=== PATIENT | female | born 1995 | race Two or more races ===

== ENCOUNTER 2018-05-28 15:19 | Emergency (ER) | payer SELFPAY ==
--- NOTE | 2018-05-28 15:42 | EDM.PDOC ---
ED HPI GENERAL MEDICAL PROBLEM - General Chief Complaint: Behavioral/Psych Stated Complaint: ANXICIETY AND SUICIDAL JOSÉ Time Seen by Provider: 05/28/18 15:42 Source of Information: Reports: Patient - History of Present Illness INITIAL COMMENTS - FREE TEXT/NARRATIVE: HISTORY AND PHYSICAL: History of present illness: [Patient presents with , she is Malagasy-speaking initial history was obtained through the [facility] system Her speaks Austrian well and provides additional history Patient has recently moved from [place], she has a history of depression for which she was on fluoxetine and an unknown medication to me which does not translate, she discontinued these medications on her own, she has a previous history of suicide attempt by ingestion 6 years prior and was hospitalized while in [place] Currently she relates her depressed mood to not wanting to live in [place] and wanting/desiring to return to [place], is also been arguing with her concerning this, and is learned that her mother has a cancerous process. Today the patient actively tried to jump out of their four-story window and their apartment complex although was detained by her or a restrained No other symptoms such as fever nausea vomiting diarrhea constipation chest pain shortness breath headache dizziness palpitation no bowel or urine symptoms no visual or audio hallucinations Review of systems: As per history of present illness and below otherwise all systems reviewed and negative. Past medical history: As per history of present illness and as reviewed below otherwise noncontributory. Surgical history: As per history of present illness and as reviewed below otherwise noncontributory. Social history: No reported history of drug or alcohol abuse. Family history: As per history of present illness and as reviewed below otherwise noncontributory. Physical exam: HEENT: Atraumatic, normocephalic, pupils reactive, negative for conjunctival pallor or scleral icterus, mucous membranes moist, throat clear, neck supple, nontender, trachea midline. Lungs: Clear to auscultation, breath sounds equal bilaterally, chest nontender. Heart: S1S2, regular, negative for clicks, rubs, or JVD. Abdomen: Soft, nondistended, nontender. Negative for masses or hepatosplenomegaly. Negative for costovertebral tenderness. Pelvis: Stable nontender. Genitourinary: Deferred. Rectal: Deferred. Extremities: Atraumatic, negative for cords or calf pain. Neurovascular unremarkable. Neuro: Awake, alert, oriented. Cranial nerves II through XII unremarkable. Cerebellum unremarkable. Motor and sensory unremarkable throughout. Exam nonfocal. Diagnostics: [CBC CMP UA hCG TSH acetaminophen salicylate alcohol and drug screen EKG Chest 1 view ] Therapeutics: [ none Patient transferred to [facility] excepting ] Impression: [ suicide ideations with attempt ] Definitive disposition and diagnosis as appropriate pending reevaluation and review of above. Head Pain Score (Numeric/FACES): 8 - Related Data Allergies Allergy/AdvReac Type Severity Reaction Status Date / Time No Known Allergies Allergy Verified 05/28/18 15:41 Home Meds: Home Meds . [No Known Home Meds] 05/28/18 [History] ED ROS GENERAL - Review of Systems Review Of Systems: See Below ED EXAM, GENERAL - Physical Exam Exam: See Below Course - Vital Signs Last Recorded V/S: Last Vital Signs Temp 97.6 F 05/28/18 15:35 Pulse 83 05/28/18 15:35 Resp 16 05/28/18 15:35 BP 119/80 05/28/18 15:35 Pulse Ox 100 05/28/18 15:35 - Orders/Labs/Meds Orders: Active Orders 24 hr Category Date Time Status EKG 12 Lead [EKG Documentation Completion] [RC] STAT Care 05/28/18 15:40 Active Chest 1V Frontal [CR] Stat Exams 05/28/18 15:40 Taken Labs: Laboratory Tests 05/28/18 05/28/18 05/28/18 Range/Units 15:51 15:51 15:55 WBC 7.26 (4.0-11.0) K/uL RBC 4.57 (4.30-5.90) M/uL Hgb 13.6 (12.0-16.0) g/dL Hct 39.3 (36.0-46.0) % MCV 86.0 (80.0-98.0) fL MCH 29.8 (27.0-32.0) pg MCHC 34.6 (31.0-37.0) g/dL RDW Std Deviation 37.6 (28.0-62.0) fl RDW Coeff of Olamide 12 (11.0-15.0) % Plt Count 249 (150-400) K/uL MPV 9.90 (7.40-12.00) fL Neut % (Auto) 60.2 (48.0-80.0) % Lymph % (Auto) 30.9 (16.0-40.0) % Sharkey % (Auto) 6.9 (0.0-15.0) % Eos % (Auto) 1.7 (0.0-7.0) % Baso % (Auto) 0.3 (0.0-1.5) % Neut # (Auto) 4.4 (1.4-5.7) K/uL Lymph # (Auto) 2.2 (0.6-2.4) K/uL Sharkey # (Auto) 0.5 (0.0-0.8) K/uL Eos # (Auto) 0.1 (0.0-0.7) K/uL Baso # (Auto) 0.0 (0.0-0.1) K/uL Nucleated RBC % 0.0 /100WBC Nucleated RBCs # 0 K/uL Sodium 139 (136-145) mmol/L Potassium 3.8 (3.5-5.1) mmol/L Chloride 107 (98-107) mmol/L Carbon Dioxide 22.8 (21.0-32.0) mmol/L BUN 19 H (7.0-18.0) mg/dL Creatinine 0.9 (0.6-1.0) mg/dL Est Cr Clr Drug Dosing 68.64 mL/min Estimated GFR (MDRD) > 60.0 ml/min Glucose 85 (74-106) mg/dL Calcium 9.0 (8.5-10.1) mg/dL Total Bilirubin 0.3 (0.2-1.0) mg/dL AST 16 (15-37) IU/L ALT 30 (14-63) IU/L Alkaline Phosphatase 60 (46-116) U/L Troponin I < 0.050 (0.000-0.056) ng/mL Total Protein 7.7 (6.4-8.2) g/dL Albumin 3.7 (3.4-5.0) g/dL Globulin 4.0 H (2.0-3.5) g/dL Albumin/Globulin Ratio 0.9 L (1.3-2.8) TSH 3rd Generation 2.96 (0.36-3.74) uIU/mL Urine Color YELLOW Urine Appearance CLEAR Urine pH 6.0 (5.0-8.0) Ur Specific [place] >= 1.030 (1.001-1.035) Urine Protein NEGATIVE (NEGATIVE) mg/dL Urine Glucose (UA) NEGATIVE (NEGATIVE) mg/dL Urine Ketones 15 H (NEGATIVE) mg/dL Urine Occult Blood NEGATIVE (NEGATIVE) Urine Nitrite NEGATIVE (NEGATIVE) Urine Bilirubin NEGATIVE (NEGATIVE) Urine Urobilinogen 0.2 (<2.0) EU/dL Ur Leukocyte Esterase NEGATIVE (NEGATIVE) Urine RBC 0-2 (0-2/HPF) Urine WBC 0-2 (0-5/HPF) Ur Epithelial Cells RARE (NONE-FEW) Urine Bacteria RARE (NEGATIVE) Urine HCG, Qual (NEGATIVE) Salicylates 0.9 (0-20) mg/dL Urine Opiates Screen (NEGATIVE) Ur Oxycodone Screen (NEGATIVE) Urine Methadone Screen (NEGATIVE) Acetaminophen 0.0 ug/mL Ur Barbiturates Screen (NEGATIVE) Ur Phencyclidine Scrn (NEGATIVE) Ur Amphetamine Screen (NEGATIVE) U Methamphetamines Scrn (NEGATIVE) U Benzodiazepines Scrn (NEGATIVE) U Cocaine Metab Screen (NEGATIVE) U Marijuana (THC) Screen (NEGATIVE) Ethyl Alcohol <3 mg/dL 05/28/18 05/28/18 Range/Units 15:55 15:55 WBC (4.0-11.0) K/uL RBC (4.30-5.90) M/uL Hgb (12.0-16.0) g/dL Hct (36.0-46.0) % MCV (80.0-98.0) fL MCH (27.0-32.0) pg MCHC (31.0-37.0) g/dL RDW Std Deviation (28.0-62.0) fl RDW Coeff of Olamide (11.0-15.0) % Plt Count (150-400) K/uL MPV (7.40-12.00) fL Neut % (Auto) (48.0-80.0) % Lymph % (Auto) (16.0-40.0) % Sharkey % (Auto) (0.0-15.0) % Eos % (Auto) (0.0-7.0) % Baso % (Auto) (0.0-1.5) % Neut # (Auto) (1.4-5.7) K/uL Lymph # (Auto) (0.6-2.4) K/uL Sharkey # (Auto) (0.0-0.8) K/uL Eos # (Auto) (0.0-0.7) K/uL Baso # (Auto) (0.0-0.1) K/uL Nucleated RBC % /100WBC Nucleated RBCs # K/uL Sodium (136-145) mmol/L Potassium (3.5-5.1) mmol/L Chloride (98-107) mmol/L Carbon Dioxide (21.0-32.0) mmol/L BUN (7.0-18.0) mg/dL Creatinine (0.6-1.0) mg/dL Est Cr Clr Drug Dosing mL/min Estimated GFR (MDRD) ml/min Glucose (74-106) mg/dL Calcium (8.5-10.1) mg/dL Total Bilirubin (0.2-1.0) mg/dL AST (15-37) IU/L ALT (14-63) IU/L Alkaline Phosphatase (46-116) U/L Troponin I (0.000-0.056) ng/mL Total Protein (6.4-8.2) g/dL Albumin (3.4-5.0) g/dL Globulin (2.0-3.5) g/dL Albumin/Globulin Ratio (1.3-2.8) TSH 3rd Generation (0.36-3.74) uIU/mL Urine Color Urine Appearance Urine pH (5.0-8.0) Ur Specific [place] (1.001-1.035) Urine Protein (NEGATIVE) mg/dL Urine Glucose (UA) (NEGATIVE) mg/dL Urine Ketones (NEGATIVE) mg/dL Urine Occult Blood (NEGATIVE) Urine Nitrite (NEGATIVE) Urine Bilirubin (NEGATIVE) Urine Urobilinogen (<2.0) EU/dL Ur Leukocyte Esterase (NEGATIVE) Urine RBC (0-2/HPF) Urine WBC (0-5/HPF) Ur Epithelial Cells (NONE-FEW) Urine Bacteria (NEGATIVE) Urine HCG, Qual NEGATIVE (NEGATIVE) Salicylates (0-20) mg/dL Urine Opiates Screen NEGATIVE (NEGATIVE) Ur Oxycodone Screen NEGATIVE (NEGATIVE) Urine Methadone Screen NEGATIVE (NEGATIVE) Acetaminophen ug/mL Ur Barbiturates Screen NEGATIVE (NEGATIVE) Ur Phencyclidine Scrn NEGATIVE (NEGATIVE) Ur Amphetamine Screen NEGATIVE (NEGATIVE) U Methamphetamines Scrn NEGATIVE (NEGATIVE) U Benzodiazepines Scrn NEGATIVE (NEGATIVE) U Cocaine Metab Screen NEGATIVE (NEGATIVE) U Marijuana (THC) Screen NEGATIVE (NEGATIVE) Ethyl Alcohol mg/dL Departure - Departure Time of Disposition: 17:04 Disposition: DC/Tfer to Acute Hospital 02 Condition: Poor Clinical Impression: Suicide attempt - Discharge Information Referrals: PCP,None [Primary Care Provider] - Forms: ED Department Discharge - My Orders Last 24 Hours: My Active Orders 05/28/18 15:40 EKG 12 Lead [EKG Documentation Completion] [RC] STAT Chest 1V Frontal [CR] Stat - Assessment/Plan Last 24 Hours: My Active Orders 05/28/18 15:40 EKG 12 Lead [EKG Documentation Completion] [RC] STAT Chest 1V Frontal [CR] Stat
[2018-05-28 16:29] LABS: CHLORIDE,CL 107 mmol/L (98-107); SODIUM,NA 139 mmol/L (136-145)
--- NOTE | 2018-05-31 10:20 | CR ---
EXAM DATE: 05/28/18 PATIENT'S AGE: 23 Patient: VIRGINIA PARRA Facility: [place], [place] Site . Site : 1995 Study: XRay Chest [id number]/28/2018 4:19:34 PM Ordering Physician: Tereza Lyman Final Report: INDICATION: Anxiety, Suicidal Thoughts TECHNIQUE: Chest 1 view. COMPARISON: None FINDINGS: Cardiovascular and mediastinum: Heart size and vasculature are normal in caliber and appearance. Mediastinum is within normal limits. Lungs and pleural space: Lungs are clear. No sign of infiltrate or mass. No sign of pleural effusion. No pneumothorax. Bones and soft tissues: No significant findings. IMPRESSION: Unremarkable chest. Dictated by: Rubens Rodas MD @ 05/28/2018 16:59:36 (Electronic Signature) Report Signed by Proxy. [facility]
== END 2018-05-28 18:10 ==
LOC: MW.ED 15:19
DX: T14.91XA Suicide attempt, initial encounter (principal)
CPT/HCPCS: 36415; 71045; 80053; 80305; 81001; 81025; 84443; 84484; 85025; 93005; 99285; G0480; 99283

== ENCOUNTER 2019-08-05 02:31 | Inpatient (IN) | payer BC ==
[2019-08-05] MEDS ORDERED: Sodium Chloride 0.9% 10 ML Syringe FLUSH PRN (02:50)
[2019-08-05] MEDS ORDERED: Butorphanol 1 MG/ML SDV IVPUSH PRN (02:50)
[2019-08-05] MEDS ORDERED: Methylergonovine 0.2 MG/1 ML Amp IM PRN (02:50)
[2019-08-05] MEDS ORDERED: Carboprost Tromethamine 250 MCG/1 ML Amp IM PRN (02:50)
[2019-08-05] MEDS ORDERED: Sodium Chloride 0.9% 2.5 ML Syringe FLUSH PRN (02:50)
[2019-08-05] MEDS ORDERED: Water For Irrigation,Sterile 1,000 ML Container IRR PRN (02:50)
[2019-08-05] MEDS ORDERED: Nalbuphine 10 MG/1 ML Vial IVPUSH PRN (02:50)
[2019-08-05] MEDS ORDERED: Lidocaine 1% 50 ML MDV INJECT PRN (02:50)
[2019-08-05] MEDS ORDERED: Sodium Chloride 0.9% 10 ML SDV IV PRN (02:50)
[2019-08-05] MEDS ORDERED: Tranexamic Acid 1,000 MG in Sodium Chloride 0.9% 100 ML IV PRN (02:50)
[2019-08-05] MEDS ORDERED: Misoprostol 200 MCG Tab PO PRN (02:50)
[2019-08-05] MEDS ORDERED: Oxytocin/0.9 % Sodium Chloride 30 UNIT/500 ML BAG IV SCH (03:00)
[2019-08-05] MEDS ORDERED: Oxytocin/0.9 % Sodium Chloride 30 UNIT/500 ML BAG ONE (03:14)
[2019-08-05] MEDS: Lactated Ringers 1,000 ML IV SCH ×2 (03:17→04:18)
[2019-08-05] MEDS ORDERED: fentaNYL 100 MCG/2 ML SDV ONE (03:49)
[2019-08-05] MEDS ORDERED: Ropivacaine HCl/PF 100 ML ONE (03:49)
--- NOTE | 2019-08-05 04:11 | PCM.PREANE ---
Preanesthetic Assessment - Anesthesia/Transfusion/Family Hx Anesthesia History: Prior Anesthesia Without Reaction Family History of Anesthesia Reaction: No - Physical Assessment NPO Status Date: 08/05/19 NPO Status Time: 00:05 Height: 1.52 m ASA Class: 1 - Lab Values: Laboratory Last Values WBC 9.04 K/uL (4.0-11.0) 08/05/19 03:10 RBC 4.03 M/uL (4.30-5.90) L 08/05/19 03:10 Hgb 11.2 g/dL (12.0-16.0) L 08/05/19 03:10 Hct 34.6 % (36.0-46.0) L 08/05/19 03:10 MCV 85.9 fL (80.0-98.0) 08/05/19 03:10 MCH 27.8 pg (27.0-32.0) 08/05/19 03:10 MCHC 32.4 g/dL (31.0-37.0) 08/05/19 03:10 RDW Std Deviation 42.9 fl (28.0-62.0) 08/05/19 03:10 RDW Coeff of Olamide 14 % (11.0-15.0) 08/05/19 03:10 Plt Count 210 K/uL (150-400) 08/05/19 03:10 MPV 9.70 fL (7.40-12.00) 08/05/19 03:10 Nucleated RBC % 0.0 /100WBC 08/05/19 03:10 Nucleated RBCs # 0 K/uL 08/05/19 03:10 Blood Type O POSITIVE 08/05/19 03:10 Antibody Screen NEGATIVE 08/05/19 03:10 - Allergies Allergies/Adverse Reactions: Allergies Allergy/AdvReac Type Severity Reaction Status Date / Time No Known Allergies Allergy Verified 06/23/18 11:08 - Acknowledgements Anesthesia Type Planned: Epidural Pt an Appropriate Candidate for the Planned Anesthesia: Yes Alternatives and Risks of Anesthesia Discussed w Pt/Guardian: Yes Pt/Guardian Understands and Agrees with Anesthesia Plan: Yes PreAnesthesia Questionnaire - Past Health History Medical/Surgical History: Denies Medical/Surgical History Gastrointestinal History: Reports: Gastritis [employer] History: Reports: Psychiatric History: Reports: Anxiety, Depression - SUBSTANCE USE Smoking Status *Q: Never Smoker Recreational Drug Use History: No - HOME MEDS Home Medications: Home Meds Ciprofloxacin HCl [Cipro] 500 mg PO BID 7 Days #14 tablet 06/23/18 [Rx] - CURRENT (IN HOUSE) MEDS Current Meds: Current Medications Butorphanol Tartrate (Stadol) 1 mg IVPUSH Q1H PRN PRN Reason: Pain Carboprost Tromethamine (Hemabate Ds) 250 mcg IM ASDIRECTED PRN PRN Reason: Post Hemorrhage Lactated Ringer's (Ringers, Lactated) 1,000 mls @ 150 mls/hr IV ASDIRECTED ZOE Last Infusion: 08/05/19 03:29 Dose: 500 mls/hr Oxytocin/Sodium Chloride (Oxytocin 30 Unit/500 Ml-Ns) 30 unit in 500 mls @ 500 mls/hr IV TITRATE ZOE Tranexamic Acid 1,000 mg/ (Sodium Chloride) 110 mls @ 660 mls/hr IV ONETIME PRN PRN Reason: Bleeding Lidocaine HCl (Xylocaine 1%) 50 ml INJECT ONETIME PRN PRN Reason: Laceration repair Methylergonovine Maleate (Methergine) 0.2 mg IM ASDIRECTED PRN PRN Reason: Post Hemorrhage Misoprostol (Cytotec) 200 mcg PO ONETIME PRN PRN Reason: Post Hemorrhage Nalbuphine HCl (Nubain) 10 mg IVPUSH Q1H PRN PRN Reason: Pain (severe 7-10) Sodium Chloride (Saline Flush) 10 ml FLUSH ASDIRECTED PRN PRN Reason: Keep Vein Open Sodium Chloride (Saline Flush) 2.5 ml FLUSH ASDIRECTED PRN PRN Reason: Keep Vein Open Sodium Chloride (Normal Saline) 10 ml IV ASDIRECTED PRN PRN Reason: IV Use Sterile Water (Sterile Water For Irrigation) 1,000 ml IRR ASDIRECTED PRN PRN Reason: delivery Discontinued Medications Fentanyl (Sublimaze) Confirm Administered Dose 100 mcg .ROUTE .STK-MED ONE Stop: 08/05/19 03:50 Oxytocin/Sodium Chloride (Oxytocin 30 Unit/500 Ml-Ns) Confirm Administered Dose 30 unit in 500 mls @ as directed .ROUTE .STK-MED ONE Stop: 08/05/19 03:15 Ropivacaine (Naropin 0.2%) Confirm Administered Dose 100 mls @ as directed .ROUTE .STK-MED ONE Stop: 08/05/19 03:50
--- NOTE | 2019-08-05 04:14 | PCM.PRNOTE ---
- Free Text/Narrative Note: Anes Note Patient requests epidural for L&D< Sitting position. Level L3-L4 midline approach. Sterile technique. Chloraprep scrub to lumbar area. Sterile fenestrated drape applied. Epidural space easily achieved single attempt with ease using FARIDA technique. FARIDA at 3 cm. Cathreaded easily 5 cm. Cath secured at skin at 9 cm using sterile clear adhesive dressing. 0356 Test 3 cc 0.2% ropiv with 1 mcg cc fentanyl negative. 0359 Load 10 cc 0.2% ropiv with 1 mcg cc fentanyl in slow divdided doses. 0402 Pump started with 90 cc same solution at 8 cc hr with 6 cc q 20 min prn bolus. Time with patient [id number] Darren Gillespie CRNA
[2019-08-05] MEDS ORDERED: Acetaminophen 500 MG Tab PO PRN (06:21)
[2019-08-05] MEDS ORDERED: Docusate Sodium 100 MG Cap PO PRN (06:21)
[2019-08-05] MEDS ORDERED: Lanolin 100% Cream 7 GM Tube TOP PRN (06:21)
[2019-08-05] MEDS ORDERED: Witch Hazel Medicated Pads 40/Jar TOP PRN (06:21)
[2019-08-05] MEDS ORDERED: Benzocaine/Menthol 20%-0.5% Spray 78 GM Cannister TOP PRN (06:21)
[2019-08-05] MEDS ORDERED: Ibuprofen 400 MG Tab PO PRN (06:21)
[2019-08-05] MEDS ORDERED: Bisacodyl 10 MG Supp RECTAL PRN (06:21)
--- NOTE | 2019-08-05 07:20 | PCM48HPAN ---
Post Anesthesia Note - EVALUATION WITHIN 48HRS OF ANESTHETIC Vital Signs in Normal Range: Yes Patient Participated in Evaluation: Yes Respiratory Function Stable: Yes Airway Patent: Yes Cardiovascular Function Stable: Yes Hydration Status Stable: Yes Pain Control Satisfactory: Yes Nausea and Vomiting Control Satisfactory: Yes Mental Status Recovered: Yes - COMMENTS/OBSERVATIONS Free Text/Narrative:: Delivered. Doing well. No problems post.
[2019-08-05] MEDS: Acetaminophen 500 MG Tab PO PRN ×2 (08:16→22:07)
--- NOTE | 2019-08-05 12:30 | OR ---
SURGEON: Giovanni Hickman MD DATE OF PROCEDURE: 08/05/2019 INDICATION FOR PROCEDURE: A 24-year-old G3, P2-0-0-2 at 38 weeks and 4 days, presenting in spontaneous labor. Patient had regular contractions and was 5 cm dilated with cervical change. She received epidural and had AROM. She became fully dilated and started pushing with contractions. PREOPERATIVE DIAGNOSES: 1. Intrauterine at 38 weeks and 4 days. 2. Active second stage of labor. POSTOPERATIVE DIAGNOSES: 1. Intrauterine at 38 weeks and 4 days. 2. Active second stage of labor. PROCEDURE: Normal spontaneous vaginal delivery. FINDINGS: Male infant, 8 and 9. weight of 3.02kg EBL: 300 mL. ANESTHESIA: Epidural. DESCRIPTION OF PROCEDURE: The patient pushed with contractions for approximately 30 minutes. heart rate with decelerations to the 80s during contractions. head delivered in occiput anterior position over intact perineum, restituted ROT. No nuchal cord was noted. Anterior shoulder delivered easily followed by posterior shoulder and remaining body. Baby was placed on maternal chest and assessed by awaiting nursery staff. Baby was pink and crying vigorously, moving all extremities after delivery. Umbilical cord was clamped and cut after 60 seconds and no longer pulsating. Umbilical cord gases were obtained. Placenta was removed with gentle traction on the umbilical cord. Placenta was examined to be intact with 3-vessel cord. Bimanual massage was performed. Uterus was firm and at the umbilicus. Perineum was examined and noted to have a superficial laceration that was hemostatic. Bleeding was minimal. care instructions were provided to patient. She tolerated the procedure well without complication. EVER / JESSENIA /[id number] JOSE A
[2019-08-05] MEDS: Ibuprofen 800 MG Tab PO PRN (16:10)
[2019-08-06] MEDS: Ibuprofen 800 MG Tab PO PRN (00:39)
--- NOTE | 2019-08-06 09:12 | PCM.PNPP ---
- General Info Date of Service: 08/06/19 Admission Dx/Problem (Free Text): Patient without complaints this morning. Light lochia. Minimal pain. Functional Status: Reports: Pain Controlled, Tolerating Diet, Ambulating, Urinating - Review of Systems General: Reports: No Symptoms HEENT: Reports: No Symptoms Pulmonary: Reports: No Symptoms Cardiovascular: Reports: No Symptoms Gastrointestinal: Reports: No Symptoms Genitourinary: Reports: No Symptoms Musculoskeletal: Reports: No Symptoms Skin: Reports: No Symptoms Neurological: Reports: No Symptoms Psychiatric: Reports: No Symptoms - Patient Data Vital Signs - Most Recent: Last Vital Signs Temp 36.4 C 08/06/19 07:50 Pulse 80 08/06/19 07:50 Resp 18 08/06/19 07:50 BP 111/64 08/06/19 07:50 Pulse Ox 97 08/06/19 07:50 Lab Results - Last 24 Hours: Laboratory Results - last 24 hr 08/06/19 Range/Units 05:48 Hgb 9.9 L (12.0-16.0) g/dL Hct 31.0 L (36.0-46.0) % Med Orders - Current: Current Medications Acetaminophen (Tylenol Extra Strength) 500 mg PO Q4H PRN PRN Reason: Pain Acetaminophen (Tylenol Extra Strength) 1,000 mg PO Q4H PRN PRN Reason: Pain Last Admin: 08/05/19 22:07 Dose: 1,000 mg Benzocaine/Menthol (Dermoplast Pain Relief 20%-0.5% Mutual) 78 gm TOP ASDIRECTED PRN PRN Reason: Perineal Comfort Measure Last Admin: 08/06/19 00:40 Dose: 1 can Bisacodyl (Dulcolax) 10 mg RECTAL ONETIME PRN PRN Reason: Constipation Butorphanol Tartrate (Stadol) 1 mg IVPUSH Q1H PRN PRN Reason: Pain Carboprost Tromethamine (Hemabate Ds) 250 mcg IM ASDIRECTED PRN PRN Reason: Post Hemorrhage Docusate Sodium (Colace) 100 mg PO BID PRN PRN Reason: Constipation Last Admin: 08/05/19 08:17 Dose: 100 mg Emollient Ointment (Lansinoh Hpa) 0 gm TOP ASDIRECTED PRN PRN Reason: Sore Nipples Lactated Ringer's (Ringers, Lactated) 1,000 mls @ 150 mls/hr IV ASDIRECTED [facility] Last Admin: 08/05/19 04:18 Dose: 500 mls/hr Oxytocin/Sodium Chloride (Oxytocin 30 Unit/500 Ml-Ns) 30 unit in 500 mls @ 500 mls/hr IV TITRATE [facility] Last Admin: 08/05/19 06:07 Dose: 500 mls/hr Tranexamic Acid 1,000 mg/ (Sodium Chloride) 110 mls @ 660 mls/hr IV ONETIME PRN PRN Reason: Bleeding Ibuprofen (Motrin) 400 mg PO Q4H PRN PRN Reason: Pain Ibuprofen (Motrin) 800 mg PO Q6H PRN PRN Reason: Pain Last Admin: 08/06/19 00:39 Dose: 800 mg Lidocaine HCl (Xylocaine 1%) 50 ml INJECT ONETIME PRN PRN Reason: Laceration repair Methylergonovine Maleate (Methergine) 0.2 mg IM ASDIRECTED PRN PRN Reason: Post Hemorrhage Misoprostol (Cytotec) 200 mcg PO ONETIME PRN PRN Reason: Post Hemorrhage Nalbuphine HCl (Nubain) 10 mg IVPUSH Q1H PRN PRN Reason: Pain (severe 7-10) Sodium Chloride (Saline Flush) 10 ml FLUSH ASDIRECTED PRN PRN Reason: Keep Vein Open Sodium Chloride (Saline Flush) 2.5 ml FLUSH ASDIRECTED PRN PRN Reason: Keep Vein Open Sodium Chloride (Normal Saline) 10 ml IV ASDIRECTED PRN PRN Reason: IV Use Sterile Water (Sterile Water For Irrigation) 1,000 ml IRR ASDIRECTED PRN PRN Reason: delivery Last Admin: 08/05/19 06:15 Dose: 1,000 ml Witch Galina (Tucks) 1 pad TOP ASDIRECTED PRN PRN Reason: comfort care Last Admin: 08/06/19 00:41 Dose: 1 tub Discontinued Medications Fentanyl (Sublimaze) Confirm Administered Dose 100 mcg .ROUTE .STK-MED ONE Stop: 08/05/19 03:50 Last Admin: 08/06/19 00:53 Dose: Not Given Oxytocin/Sodium Chloride (Oxytocin 30 Unit/500 Ml-Ns) Confirm Administered Dose 30 unit in 500 mls @ as directed .ROUTE .STK-MED ONE Stop: 08/05/19 03:15 Ropivacaine (Naropin 0.2%) Confirm Administered Dose 100 mls @ as directed .ROUTE .STK-MED ONE Stop: 08/05/19 03:50 Last Admin: 08/06/19 00:52 Dose: Not Given - Infant Interaction Disposition, : at Bedside Interaction: Not Interacting Infant Feeding: Attempted ; Nursed Fair/Poor - Recovery Exam Fundal Tone: Firm Fundal Level: 1 Fingerbreadths Below Umbilicus Fundal Placement: Midline Lochia Amount: Scant Lochia Color: Rubra/Red Bladder Status: Voiding Urinary Elimination: Voided - Exam General: Alert, Oriented Neck: Supple Lungs: Clear to Auscultation, Normal Respiratory Effort Cardiovascular: Regular Rate, Regular Rhythm GI/Abdominal Exam: Soft, Non-Tender, No Distention Extremities: Non-Tender, No Pedal Edema Skin: Warm, Dry, Intact Neurological: No New Focal Deficit Psy/Mental Status: Alert, Normal Affect, Normal Mood - Problem List & Annotations (1) Vaginal delivery SNOMED Code(s): 421281030 Code(s): O80 - ENCOUNTER FOR FULL-TERM UNCOMPLICATED DELIVERY Status: Acute Current Visit: Yes - Problem List Review Problem List Initiated/Reviewed/Updated: Yes - Assessment Assessment:: 24yo PPD#1 s/p - Plan Plan:: Meeting all milestones. Desires discharge home today. Reviewed discharge instructions.
== END 2019-08-06 12:59 | disposition home or self-care (01) | DRG 560 ==
LOC: MW.OBCHECK 02:31 → MW.OB 02:32 → MW.OBCHECK 02:35 → OBSVTOIN 06:04 → MW.OB 09:04
PROVIDERS: ADMIT Obstetrics & Gynecology; ATTEND Obstetrics & Gynecology
PROC: 10E0XZZ Delivery of Products of Conception, External Approach (ICD-10-PCS; principal; 2019-08-05)
PROC: 10907ZC Drainage of Amniotic Fluid, Therapeutic from Products of Conception, Via Natural or Artificial Opening (ICD-10-PCS; 2019-08-05)
DX: O80 Encounter for full-term uncomplicated delivery (principal); Z37.0 Single live birth; Z3A.38 38 weeks gestation of pregnancy
CPT/HCPCS: 01967; 36415; 51702; 59025; 59409; 85014; 85018; 85027; 86593; 86850; 86900; 86901; A9270-GY; J2590; J2795; J3010; J7120

== ENCOUNTER 2021-04-09 10:09 | Day surgery (SDC) | payer BC ==
[~2021-04-09 10:09] MED LIST: Lactated Ringers 1,000 ML IV SCH; Sodium Chloride 0.9% 10 ML SDV IV PRN; Sodium Chloride 0.9% 10 ML Syringe FLUSH PRN; Sodium Chloride 0.9% 2.5 ML Syringe FLUSH PRN
--- NOTE | 2021-04-09 11:02 | PCM.PREANE ---
Preanesthetic Assessment - Procedure Proposed Procedure: Excision of back mass - Anesthesia/Transfusion/Family Hx Anesthesia History: Prior Anesthesia Without Reaction Transfusion History: No Prior Transfusion(s) - Review of Systems General: No Symptoms Pulmonary: No Symptoms Cardiovascular: No Symptoms Gastrointestinal: No Symptoms Neurological: No Symptoms Other: Reports: None - Physical Assessment NPO Status Date: 04/08/21 NPO Status Time: 18:00 Vital Signs: Last Vital Signs Temp 97.3 F 04/09/21 10:30 Pulse 84 04/09/21 10:30 Resp 15 04/09/21 10:30 BP 101/58 L 04/09/21 10:30 Pulse Ox 99 04/09/21 10:30 Height: 5 ft 3 in Weight: 60.781 kg ASA Class: 1 Mental Status: Alert & Oriented x3 Airway Class: Mallampati = 2 Dentition: Reports: Normal Dentition Thyro-Mental Finger Breadths: 3 Mouth Opening Finger Breadths: 3 ROM/Head Extension: Full Lungs: Clear to Auscultation, Normal Respiratory Effort Cardiovascular: Regular Rate, Regular Rhythm - Lab Values: Laboratory Last Values Urine HCG, Qual NEGATIVE (NEGATIVE) 04/09/21 10:20 - Allergies Allergies/Adverse Reactions: Allergies Allergy/AdvReac Type Severity Reaction Status Date / Time No Known Allergies Allergy Verified 04/08/21 09:33 - Acknowledgements Anesthesia Type Planned: MAC Pt an Appropriate Candidate for the Planned Anesthesia: Yes Alternatives and Risks of Anesthesia Discussed w Pt/Guardian: Yes Pt/Guardian Understands and Agrees with Anesthesia Plan: Yes PreAnesthesia Questionnaire - Past Health History Medical/Surgical History: Denies Medical/Surgical History HEENT History: Reports: Other (See Below) Other HEENT History: wears glasses Cardiovascular History: Reports: None Respiratory History: Reports: None Gastrointestinal History: Reports: Other (See Below) Other Gastrointestinal History: occasional heartburn- no medications Genitourinary History: Reports: None EXERCISE INSTRUCT History: Reports: None Musculoskeletal History: Reports: None Neurological History: Reports: None Psychiatric History: Reports: None Endocrine/Metabolic History: Reports: None Hematologic History: Reports: None Immunologic History: Reports: None Oncologic (Cancer) History: Reports: None Dermatologic History: Reports: None - Past Surgical History Head Surgeries/Procedures: Reports: None HEENT Surgical History: Reports: None Cardiovascular Surgical History: Reports: None Respiratory Surgical History: Reports: None GI Surgical History: Reports: None Female Surgical History: Reports: Tubal Ligation Endocrine Surgical History: Reports: None Neurological Surgical History: Reports: None Musculoskeletal Surgical History: Reports: Other (See Below) Other Musculoskeletal Surgeries/Procedures:: previous excision of back mass 5 years ago Dermatological Surgical History: Reports: None - SUBSTANCE USE Tobacco Use Status *Q: Former Tobacco User Tobacco Use Within Last Twelve Months: No Recreational Drug Use History: No - HOME MEDS Home Medications: Home Meds . [No Known Home Meds] 04/08/21 [History] - CURRENT (IN HOUSE) MEDS Current Meds: Current Medications Lactated Ringer's (Ringers, Lactated) 1,000 mls @ 125 mls/hr IV ASDIRECTED ZOE Sodium Chloride (Sodium Chloride 0.9% 10 Ml Sdv) 10 ml IV ASDIRECTED PRN PRN Reason: IV Use Sodium Chloride (Sodium Chloride 0.9% 10 Ml Syringe) 10 ml FLUSH ASDIRECTED PRN PRN Reason: Keep Vein Open Sodium Chloride (Sodium Chloride 0.9% 2.5 Ml Syringe) 2.5 ml FLUSH ASDIRECTED PRN PRN Reason: Keep Vein Open
[2021-04-09] MEDS ORDERED: Propofol 200 MG/20 ML SDV ONE (11:37)
[2021-04-09] MEDS ORDERED: fentaNYL 100 MCG/2 ML SDV ONE (11:38)
[2021-04-09] MEDS ORDERED: Ketamine 500 mg/10 ML MDV ONE (11:38)
[2021-04-09] MEDS ORDERED: Midazolam 1 MG/ML 2 ML SDV ONE (11:38)
[2021-04-09] MEDS ORDERED: Bupivacaine 0.5% 30 ML SDV ONE (11:51)
[2021-04-09] MEDS ORDERED: HYDROmorphone 2 MG/ML Syringe ONE (12:20)
[2021-04-09] MEDS ORDERED: Octyl 2-Cyanoacrylate 1 Tube ONE (12:26)
--- NOTE | 2021-04-09 12:54 | PCM.POSTAN ---
POST ANESTHESIA ASSESSMENT - VITAL SIGNS Vital Signs: Last Vital Signs Temp 37 C 04/09/21 12:41 Pulse 88 04/09/21 12:50 Resp 11 L 04/09/21 12:50 BP 88/48 L 04/09/21 12:50 Pulse Ox 97 04/09/21 12:50 - RESPIRATORY Respiratory Status: Respiratory Rate WNL, Airway Patent, O2 Saturation Stable - CARDIOVASCULAR CV Status: Pulse Rate WNL, Blood Pressure Stable - GASTROINTESTINAL GI Status: No Symptoms - PAIN Pain Score: 3 - POST OP HYDRATION Hydration Status: Adequate & Stable
--- NOTE | 2021-04-09 13:02 | PCM48HPAN ---
Post Anesthesia Note - EVALUATION WITHIN 48HRS OF ANESTHETIC Vital Signs in Normal Range: Yes Patient Participated in Evaluation: Yes Respiratory Function Stable: Yes Airway Patent: Yes Cardiovascular Function Stable: Yes Hydration Status Stable: Yes Pain Control Satisfactory: Yes Nausea and Vomiting Control Satisfactory: Yes Mental Status Recovered: Yes Vital Signs: Last Vital Signs Temp 37 C 04/09/21 12:41 Pulse 88 04/09/21 12:50 Resp 11 L 04/09/21 12:50 BP 88/48 L 04/09/21 12:50 Pulse Ox 97 04/09/21 12:50 - COMMENTS/OBSERVATIONS Free Text/Narrative:: patient awake and denies pain or nausea.
--- NOTE | 2021-04-09 13:08 | PCM.OPNOTE ---
- General Post-Op/Procedure Note Date of Surgery/Procedure: 04/09/21 Operative Procedure(s): Excision back mass Findings: Excised old scar measuring 2.5 cm x 0.8 cm. 1.2 cm. Lipoma 3 cm x 4 cm x 1 cm Pre Op Diagnosis: Lipoma Post-Op Diagnosis: same Anesthesia Technique: MAC Primary Surgeon: May Emanuel Condition: Good
[2021-04-09] MEDS ORDERED: Metoclopramide 10 MG/2 ML SDV ONE (13:38)
[2021-04-09] MEDS ORDERED: Metoclopramide 10 MG/2 ML SDV IM ONE (13:44)
--- NOTE | 2021-04-10 15:58 | OR ---
SURGEON: MAY EMANUEL MD DATE OF PROCEDURE: 04/09/2021 PREOPERATIVE DIAGNOSIS: Mass of back. POSTOPERATIVE DIAGNOSIS: Lipoma of back. PROCEDURE PERFORMED: Excision, back mass. PRIMARY SURGEON: May Emanuel MD ANESTHESIA: MAC, local. FLUID: 1000 mL crystalloid. ESTIMATED BLOOD LOSS: 3 mL. FINDINGS: Lipoma, 3 cm x 4 cm x 1 cm. Overlying skin excised, 2.5 cm x 0.8 cm x 1.2 cm. No margins associated with case. COMPLICATIONS: None. INDICATIONS: The patient is a 25-year-old female who had a lipoma removed from her back five to six years ago. She states that over the past year, it has slowly grown back. She feels a soft mass underlying her previous scar. Clinical exam revealed a soft semi-mobile nontender mass in her back. I explained the need for excision given that it is growing in size. I explained the procedure, expected perioperative course, and the risks. She verbalized understanding and wishes to proceed. PROCEDURE IN DETAIL: The patient was brought in to the OR and placed on the OR table in a right lateral decubitus position. A time-out was completed verifying the patient's name, age, date of , allergies, and procedure to be performed. Monitored anesthesia care was induced and continuous oxygen was provided via face mask throughout the procedure. The upper back was prepped and draped in usual standard fashion. In the preoperative area, I had marked the site of the mass and her previous scar. I anesthetized the skin overlying the mass and the previous scar with 0.5% Marcaine plain. A 15-blade was used to make an elliptical incision along her previous scar tissue. I then used cautery to dissect down to the level of subcutaneous fat. I undermined the scar tissue using cautery and passed it off the field. This ellipse of tissue measured 2.5 cm x 0.8 cm x 1.2 cm in size. Just underneath this area was a fatty globular mass consistent with that of a lipoma. Using a combination of electrocautery as well as blunt dissection with my finger, I excised the lipoma from the surrounding normal appearing subcutaneous fat. The tissue was then placed on the back field. It measured 3 cm x 4 cm x 1 cm in size. It was sent to Pathology labeled as back mass. The overlying skin that was excised was sent to Pathology, labeled as excised skin. Electrocautery was used to achieve hemostasis within the wound. There was one pinpoint area of bleeding that continued to ooze. I then ligated this area with a [id number] 3-0 Vicryl stitch. The bleeding then stopped. The wound was then closed with interrupted layers of 3-0 Vicryl suture in the subcutaneous fat and the skin was closed with a running 4-0 Monocryl stitch. Dermabond and sterile dressings were applied. The patient tolerated the procedure well. All counts were complete and correct at the end of the case. The patient was awoken and taken to PACU in stable condition. CHASE RUELAS /[id number]
== END 2021-04-09 14:35 | disposition home or self-care (01) ==
LOC: MW.SDS 10:09
PROVIDERS: ATTEND Surgery
DX: D17.1 Benign lipomatous neoplasm of skin and subcutaneous tissue of trunk (principal); Z87.891 Personal history of nicotine dependence
CPT/HCPCS: 21931; 81025; A9270; J1170; J2250; J2704; J2765; J3010; J3490; J7120; 00300

== ENCOUNTER 2022-10-07 11:35 | Emergency (ER) | payer BC ==
[2022-10-07] MEDS ORDERED: Sodium Chloride 0.9% 1,000 ML IV ONE (11:42)
[2022-10-07] MEDS ORDERED: Ondansetron 4 MG/2 ML SDV IVPUSH ONE (11:45)
[2022-10-07] MEDS ORDERED: Famotidine 20 MG/2 ML SDV IVPUSH ONE (11:45)
[2022-10-07 12:48] LABS: POTASSIUM,K 3.9 mmol/L (3.5-5.1)
[2022-10-07] MEDS ORDERED: Alum Hydro/Mag Hydro/Simeth XS 15 ML, Metoclopramide 5 MG, Lidocaine 2% 5 ML PO ONE ×3 (13:43)
== END 2022-10-07 15:40 | disposition home or self-care (01) ==
LOC: MW.ED 11:35
DX: K29.70 Gastritis, unspecified, without bleeding (principal)
CPT/HCPCS: 36415; 74019; 80053; 81001; 81025; 83690; 85025; 87086; 96361; 96374; 96375; 99284; A9270; J2405; J3490; J7030

== ENCOUNTER 2022-10-30 07:19 | Day surgery (SDC) | payer BC ==
[~2022-10-30 07:19] MED LIST changes: -Sodium Chloride 0.9% 10 ML SDV IV PRN; +Sodium Chloride 0.9% 20 ML SDV IV PRN
[2022-10-30] MEDS ORDERED: fentaNYL 100 MCG/2 ML SDV ONE (07:36)
[2022-10-30] MEDS ORDERED: Propofol 200 MG/20 ML SDV ONE (07:36)
== END 2022-10-30 09:38 | disposition home or self-care (01) ==
LOC: MW.SDS 07:19
PROVIDERS: ATTEND Surgery
DX: K29.50 Unspecified chronic gastritis without bleeding (principal); K21.9 Gastro-esophageal reflux disease without esophagitis; Z79.899 Other long term (current) drug therapy; Z98.890 Other specified postprocedural states; Z87.891 Personal history of nicotine dependence
CPT/HCPCS: 43239; 81025; J2704; J3010; J7120

== ENCOUNTER 2022-12-18 08:49 | Day surgery (SDC) | payer BC ==
[~2022-12-18 08:49] MED LIST changes: +Bupivacaine 0.5% 30 ML SDV ONE; +ceFAZolin 2 GM in Sodium Chloride 0.9% 50 ML IV ONE
[2022-12-18] MEDS ORDERED: Albuterol 0.083% 2.5 MG/3 ML Neb Soln NEB PRN ×2 (09:05→09:35)
[2022-12-18] MEDS ORDERED: Metoclopramide 10 MG/2 ML SDV IVPUSH PRN ×2 (09:05→09:35)
[2022-12-18] MEDS ORDERED: fentaNYL 50 MCG/ML SDV IVPUSH PRN ×2 (09:05→09:35)
[2022-12-18] MEDS ORDERED: HYDROmorphone 1 MG/ML Syringe IVPUSH PRN ×2 (09:05→09:35)
[2022-12-18] MEDS ORDERED: Morphine 2 MG/ML SYRINGE IVPUSH PRN ×2 (09:05→09:35)
[2022-12-18] MEDS ORDERED: Naloxone 0.4 MG/ML SDV IVPUSH PRN ×2 (09:05→09:35)
[2022-12-18] MEDS ORDERED: Ondansetron 4 MG/2 ML SDV IVPUSH PRN ×2 (09:05→09:35)
[2022-12-18] MEDS ORDERED: droPERidol 5 MG/2 ML SDV IVPUSH PRN ×2 (09:05→09:35)
[2022-12-18] MEDS ORDERED: Bupivacaine 25%/EPINEPHrine/PF 30 ML ONE (10:05)
[2022-12-18] MEDS ORDERED: Ropivacaine 0.5% 5 MG/ML 30 ML SDV ONE (10:06)
[2022-12-18] MEDS ORDERED: Rocuronium Bromide 50 MG/5 ML Syringe ONE (10:10)
[2022-12-18] MEDS ORDERED: Ketorolac 30 MG/ML SDV ONE (10:10)
[2022-12-18] MEDS ORDERED: Sugammadex Sodium 200 MG/2 ML VIAL ONE (10:10)
[2022-12-18] MEDS ORDERED: Lidocaine 2% 5 ML SDV ONE (10:10)
[2022-12-18] MEDS ORDERED: Ondansetron 4 MG/2 ML SDV ONE (10:10)
[2022-12-18] MEDS ORDERED: Dexamethasone 4 MG/ML 5 ML MDV ONE (10:10)
[2022-12-18] MEDS ORDERED: Propofol 200 MG/20 ML SDV ONE (10:11)
[2022-12-18] MEDS ORDERED: Midazolam 1 MG/ML 2 ML SDV ONE (10:12)
[2022-12-18] MEDS ORDERED: fentaNYL 100 MCG/2 ML SDV ONE ×2 (10:12→11:18)
[2022-12-18] MEDS ORDERED: ceFAZolin 2 GM Vial ONE (10:40)
[2022-12-18] MEDS ORDERED: Water For Injection, Sterile 20 ML ONE (10:40)
== END 2022-12-18 13:57 | disposition home or self-care (01) ==
LOC: MW.SDS 08:49
PROVIDERS: ATTEND Surgery
DX: K81.1 Chronic cholecystitis (principal); K82.8 Other specified diseases of gallbladder; K21.9 Gastro-esophageal reflux disease without esophagitis; Z79.899 Other long term (current) drug therapy
CPT/HCPCS: 47562; 81025; J0131; J0690; J1100; J1170; J1885; J2250; J2405; J2704; J2795; J3010; J3490; J7120; 00790; 64488

== ENCOUNTER 2024-01-24 07:59 | Emergency (ER) | payer SELFPAY ==
[2024-01-24] MEDS: Ibuprofen 600 MG Tab PO ONE (08:41)
== END 2024-01-24 10:10 | disposition home or self-care (01) ==
LOC: MW.ED 07:59
DX: S93.402A Sprain of unspecified ligament of left ankle, initial encounter (principal); X50.1XXA Overexertion from prolonged static or awkward postures, initial encounter
CPT/HCPCS: 73590; 73610; 73630; 99283; A9270